=== PATIENT | female | born 1945 | race Caucasian/White ===

== ENCOUNTER 2017-07-01 09:53 | Emergency (ER) | payer MEDICARE, OTHER ==
[2017-07-01] MEDS ORDERED: Naproxen 500 MG TAB ONE (10:48)
[2017-07-01] MEDS ORDERED: Acetaminophen/Codeine 30-300mg Tablet ONE (10:48)
--- NOTE | 2017-07-01 11:21 | RAD ---
FOUR VIEWS LEFT WRIST: Date: 07-01-17 History: Injury to left wrist after fall. 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 Prominent osteophytes are present at this level. No fracture or dislocation is seen. No other osseous abnormality is appreciate d. IMPRESSION: Prominent osteoarthritis first carpal metacarpal joint. No obvious fracture is appreciated. POS: GENE
== END 2017-07-01 11:00 | disposition home or self-care (01) ==
LOC: MADERS 09:53
DX: S60.212A Contusion of left wrist, initial encounter (principal); Z79.899 Other long term (current) drug therapy; W19.XXXA Unspecified fall, initial encounter